=== PATIENT | female | born 1970 | race Caucasian/White ===

== ENCOUNTER 2018-09-17 09:41 | Emergency (ER) | payer OTHER ==
[~2018-09-17] VITALS: Ht 170.2 cm; Wt 99.8 kg
[2018-09-17 09:46] VITALS: BP 156/98
[2018-09-17] MEDS ORDERED: HYDROcodone/APAP 5/325MG 1 TAB TABLET PO ONE (10:15)
[2018-09-17] MEDS ORDERED: HYDROcodone/APAP 5/325MG 1 TAB TABLET ONE (10:28)
[2018-09-17] MEDS ORDERED: AMOX1TAB61 PO (10:32)
--- NOTE | 2018-09-17 10:33 | PHYS DOC ---
Past Medical History Past Medical History: Migraines, Seizure Past Surgical History: Cholecystectomy Additional Past Surgical Histo: RIGHT ANKLE FRACTURE REPAIR, DISC REPLACEMENT BETWEEN C5-C6 Alcohol Use: None Drug Use: None Adult General Chief Complaint Chief Complaint: SORE THROAT HPI HPI Patient is a 48 year old female who presents to the emergency department with complaints of pain behind her left ear for the last 4 days and a sore throat. She states she has been taking a Z-Abner for the last 4 days that was called in by her primary care doctor back in [place]. She also reports a fever up to 100.0. She denies any drainage, decreased hearing, nasal congestion, cough, shortness of breath, wheezing, nausea, vomiting, diarrhea, or sinus pressure. Patient states that it feels like pressure in her ear. She has taken her oral Toradol with no relief of her pain. Patient states she has also tried taking Tylenol. Currently she rates her pain a 9 out of 10 on the pain scale and describes the discomfort as stabbing. Review of Systems Review of Systems Constitutional: See history of present illness Eyes: Denies change in visual acuity, redness, or eye pain [] HENT: Denies nasal congestion; see history of present illness Respiratory: Denies cough or shortness of breath [] Cardiovascular: No additional information not addressed in HPI [] GI: Denies abdominal pain, nausea, vomiting, or diarrhea [] Musculoskeletal: Denies back pain or joint pain [] Integument: Denies rash or skin lesions [] Neurologic: Denies headache, focal weakness or sensory changes [] All other systems were reviewed and found to be within normal limits, except as documented in this note. Current Medications Current Medications Current Medications Medications (Trade) Dose Ordered Sig/[facility] Start Time Stop Time Status Last Admin Dose Admin Acetaminophen/ Hydrocodone Bitart (Lortab 5/325) 1 tab 1X ONCE 09/17/18 10:15 09/17/18 10:16 UNV Physical Exam Physical Exam Constitutional: Well developed, well nourished, no acute distress, non-toxic appearance. [] HENT: Normocephalic, atraumatic, bilateral external ears normal, bilateral TMs normal, posterior pharynx normal, tonsils normal, oropharynx moist, no oral exudates, nose normal; tenderness to palpation over the left mastoid process with mild edema, no erythema, no warmth [] Eyes: PERRLA, conjunctiva normal, no discharge. [] Neck: Normal range of motion, no tenderness, supple, no stridor. [] Cardiovascular:Heart rate tachycardic rhythm, no murmur [] Lungs & Thorax: Bilateral breath sounds clear to auscultation [] Skin: Warm, dry, no erythema, no rash. [] Extremities: No cyanosis, no clubbing, ROM intact, no edema. [] Neurologic: Alert and oriented X 3, no focal deficits noted. [] Psychologic: Affect normal, judgement normal, mood normal. [] Current Patient Data Vital Signs Vital Signs Date Time Temp Pulse Resp B/P (MAP) Pulse Ox O2 Delivery O2 Flow Rate FiO2 09/17/18 09:46 98.6 115 20 156/98 (117) 97 Room Air 98.6 EKG EKG [] Radiology/Procedures Radiology/Procedures [] Course & Med Decision Making Course & Med Decision Making Pertinent Labs and Imaging studies reviewed. (See chart for details) [] Dragon Disclaimer Dragon Disclaimer This electronic medical record was generated, in whole or in part, using a voice recognition dictation system. Departure Departure Impression: Primary Impression: Mastoiditis of left side Disposition: HOME, SELF-CARE Condition: STABLE Referrals: UNKNOWN PCP NAME (PCP) Patient Instructions: Mastoiditis Additional Instructions: Fill prescription and use as directed. Tylenol as needed for pain. Follow up with PCP next week, return to the ER if symptoms worsen. Scripts Amoxicillin/Potassium Clav (AUGMENTIN 875-125 TABLET) 1 Each Tablet 1 TAB PO BID for 10 Days, #20 TAB 0 Refills Prov: ALONDRA SHEIKH APRN 09/17/18 ALONDRA SHEIKH [employer] Sep 17, 2018 10:33
== END 2018-09-17 10:46 | disposition home or self-care (01) ==
LOC: ER 09:41
DX: H70.92 Unspecified mastoiditis, left ear (principal); J02.9 Acute pharyngitis, unspecified; G43.909 Migraine, unspecified, not intractable, without status migrainosus; Z90.49 Acquired absence of other specified parts of digestive tract; R00.0 Tachycardia, unspecified
CPT/HCPCS: 99283